=== PATIENT | female | born 1930 | race Caucasian/White ===

== ENCOUNTER 2018-03-26 16:55 | Inpatient (IN) ==
[2018-03-26 18:02] LABS: Baso % (Auto) 0.2 % (0.0-2.0); Hemoglobin 11.9 gm/dL (11.6-15.3); Lymph # (Auto) 0.7 th/mm3 (1.0-4.8); Lymph % (Auto) 6.2 % (9.0-44.0); Mean Corpuscular HGB Conc 34.1 % (32.0-36.0); Mean Corpuscular Volume 102.7 fL (80.0-100.0); Mean Platelet Volume 10.1 fL (7.0-11.0); Mono # (Auto) 2.1 th/mm3 (0.0-0.9); Mono % (Auto) 17.9 % (0.0-8.0); Neut # (Auto) 8.9 th/mm3 (1.8-7.7); Neut % (Auto) 75.7 % (16.0-70.0); Platelet Count 218 th/mm3 (150-450); Red Blood Count 3.41 mil/mm3 (4.00-5.30); Red Cell Distribution Width 13.8 % (11.6-17.2); White Blood Count 11.7 th/mm3 (4.0-11.0)
--- NOTE | 2018-03-26 18:12 | ED ---
HPI General Chief Complaint: Fall Stated Complaint: Fall, confusion Time Seen by Provider: 03/26/18 17:11 Source: patient Mode of arrival: wheelchair Limitations: no limitations History of Present Illness HPI Narrative: Patient is an 87-year-old female with past medical history significant for atrial fibrillation (on Eliquis), hypertension, diabetes mellitus, and heart murmur who presents to emergency room with complaints of fall injury. Son reports that he was called by [employer] approximate 45 minutes ago with concerns that his mother had had a fall due to significant ecchymosis around her right eye. Patient states she did not even know she fell and does not know any of the circumstances surrounding her fall. Currently she denies any headache, visual disturbances, nausea, vomiting dizziness or gait disturbance. She denies any recent chest pain, shortness of breath, abdominal pain, nausea, vomiting, urinary symptoms, dizziness. Son states that when he arrived at patient's [place] his mother seemed mildly confused and a little bit more subdued. Here she seems to be returning to her norm. Related Data Home Medications Medication Instructions Recorded Confirmed apixaban [Eliquis] 5 mg PO BID 03/26/18 03/26/18 losartan 100 mg PO DAILY 03/26/18 03/26/18 Allergies Allergy/AdvReac Type Severity Reaction Status Date / Time NKDA Allergy Mild Uncoded 03/29/03 08:20 Review of Systems ROS: all other systems reviewed are negative [facility] Medical History Medical History Atrial fibrillation (Acute) Diabetes (Acute) FH: total knee replacement (Acute) HTN (hypertension) (Acute) Heart murmur (Acute) Social History Social History Substance History: No History of Abuse Second Hand Smoke Exposure: No Smoking Status: Former smoker How Often Do You Have a Drink Containing Alcohol: 2 to 4 times a month Recent Travel in [facility] within the Last 8 Weeks: No Recent Out of Country Travel within the Last 8 Weeks: No Immunization History Tetanus Immunization: <5 Years Exam Narrative Exam Narrative: GENERAL: Alert, elderly, female, NAD SKIN: Focused skin assessment warm/dry. Significant upper and lower eyelid ecchymosis on the right as well as periorbital ecchymosis. No open lacerations. HEAD: Atraumatic. Normocephalic. No collins sign EYES: Pupils equal and round. No scleral icterus. No injection or drainage. ENT: No nasal bleeding or discharge. Mucous membranes pink and moist. NECK: Trachea midline. No JVD. CARDIOVASCULAR: Irregular rate. No murmur appreciated. RESPIRATORY: No accessory muscle use. Clear to auscultation. Breath sounds equal bilaterally. GASTROINTESTINAL: Abdomen soft, non-tender, nondistended. Hepatic and splenic margins not palpable. MUSCULOSKELETAL: No obvious deformities. No clubbing. No cyanosis. No edema. NEUROLOGICAL: Awake and alert. No obvious cranial nerve deficits. Motor grossly within normal limits. Normal speech. PSYCHIATRIC: Appropriate mood and affect; insight and judgment normal. Course Initial Documented Vital Signs Temperature 98.3 F 03/26/18 16:59 Pulse Rate 125 H 03/26/18 16:59 Respiratory Rate 18 03/26/18 16:59 Blood Pressure 129/85 03/26/18 16:59 Pulse Oximetry 96 03/26/18 16:59 Last Documented Vital Signs Temperature 98 F 03/28/18 19:45 Pulse Rate 104 H 03/28/18 19:45 Respiratory Rate 17 03/28/18 19:45 Blood Pressure 175/79 H 03/28/18 19:45 Pulse Oximetry 95 03/28/18 19:45 Medical Decision Making ADIEL Attestation ADIEL supervised visit: Yes Attestation: I, Dr. Sesay, have reviewed the advance practice practitioner's documentation and am in agreement, met with the patient face to face, made the diagnosis, and the medical decision making was done by me. *My assessment and Findings: Traumatic subarachnoid hemorrhage. Anticoagulated. There is a call out to the trauma surgeon and neurosurgeon. If the trauma surgeon defers to the sleeping car service attendant, patient will be admitted to the intensive service otherwise will be admitted to the trauma service. Patient was seen by me, Dr. Lomas, after the CT scan reports were back. Patient appears to be alert and oriented x3. Her son was sitting next to her. Patient does not recall this fall at all. Her son said that patient was last seen by the other residents at the [facility] on Thursday. And then they saw her this morning and were alerted by the bruising around her right eye. Case was discussed with Dr. Marshall from neurosurgery. Patient is on Eliquis for A. fib and he would prefer the patient to be in the intensive care unit. My nurse practitioner who is seeing the patient and I am supervising her discussed the case initially with the sleeping car service attendant Dr. Figueredo who wanted the patient to go to trauma service. She discussed the case with Dr. Rose. I have updated the patient about the plan. She is agreeable to it. It was also noted that patient has slightly elevated troponin and a density in her lung which is read by the radiologist as a mass versus consolidation. This will be addressed by the medical team once the patient has been admitted. MDM Narrative Medical decision making narrative: Patient is an 87-year-old female with a history of atrial fibrillation, on Eliquis who sustained a fall either today or yesterday. Circumstances surrounding her fall are unknown by the patient. Unknown whether she had loss of consciousness. Unknown if there was chest pain or dizziness prior to the fall or what it was a slip and fall. Obvious periorbital ecchymosis surrounding the right eye. No palpable fracture upon examination. Sclera clear. Patient asymptomatic currently with no complaints of headache, dizziness, nausea, vomiting, visual disturbances. CT of the head as well as a CT the patient bones without contrast ordered EKG showed atrial fib at 103, no ST elevation. Troponin, CBC, UA, CMP, chest x- ray ordered as well and pending. Please refer to Dr. Lomas's note above. Spoke with Dr. Rose will admit the patient. Course of the patient be admitted to ICU. Medical Screen Exam Complete: Yes Emergency Medical Condition: Yes Differential Diagnosis Differential Diagnosis: Facial fracture/contusion/closed head injury/ intracranial bleed Lab Data Result diagrams: 03/28/18 04:24 03/28/18 04:24 Lab Results 03/26/18 03/26/18 03/26/18 Range/Units 17:11 17:11 17:11 WBC 11.7 H (4.0-11.0) th/mm3 RBC 3.41 L (4.00-5.30) mil/mm3 Hgb 11.9 (11.6-15.3) gm/dL Hct 35.0 (35.0-46.0) % MCV 102.7 H (80.0-100.0) fL MCH 35.0 H (27.0-34.0) pg MCHC 34.1 (32.0-36.0) % RDW 13.8 (11.6-17.2) % Plt Count 218 (150-450) th/mm3 MPV 10.1 (7.0-11.0) fL Neut % (Auto) 75.7 H (16.0-70.0) % Lymph % (Auto) 6.2 L (9.0-44.0) % [place] % (Auto) 17.9 H (0.0-8.0) % Eos % (Auto) 0.0 (0.0-4.0) % Baso % (Auto) 0.2 (0.0-2.0) % Neut # (Auto) 8.9 H (1.8-7.7) th/mm3 Lymph # (Auto) 0.7 L (1.0-4.8) th/mm3 [place] # (Auto) 2.1 H (0.0-0.9) th/mm3 Eos # (Auto) 0.0 (0.0-0.4) th/mm3 Baso # (Auto) 0.0 (0.0-0.2) th/mm3 WBC Differential . Differential Comment Auto diff final Sodium 137 (136-145) meq/L Potassium 4.5 (3.5-5.1) meq/L Chloride 103 (98-107) meq/L Carbon Dioxide 25.9 (21.0-32.0) meq/L Anion Gap 8 (5-15) meq/L BUN 18 (7-18) mg/dL Creatinine 1.14 H (0.50-1.00) mg/dL Estimated GFR 45 L (>89) mL/min Random Glucose 132 H (74-106) mg/dL Calcium 9.2 (8.5-10.1) mg/dL Total Bilirubin (0.2-1.0) mg/dL AST (15-37) U/L ALT (10-53) U/L Alkaline Phosphatase (45-117) U/L Troponin I 0.07 H (0.02-0.05) ng/mL B-Natriuretic Peptide 155 H (0-100) pg/mL Total Protein (6.4-8.2) g/dL Albumin (3.4-5.0) g/dL Urine Color (Yellw/Straw) Urine Clarity (Clear) Urine pH (5.0-8.5) Ur Specific [place] (1.002-1.035) Urine Protein (Neg-Trace) mg/dL Urine Glucose (UA) (Negative) mg/dL Urine Ketones (Negative) mg/dL Urine Occult Blood (Negative) Urine Nitrate (Negative) Urine Bilirubin (Negative) Urine Urobilinogen (Less than 2) mg/dL Ur Leukocyte Esterase (Negative) Urine RBC (0-3) /hpf Urine WBC (0-5) /hpf Urine Bacteria (None) /hpf Urine Mucus (Occasional) /lpf Micro UA Comment Ur Microscopic Review Urine Culture Comments Nasal Screen MRSA (PCR) (Negative) 03/26/18 03/27/18 03/27/18 Range/Units 21:30 04:41 04:41 WBC 9.0 (4.0-11.0) th/mm3 RBC 2.99 L (4.00-5.30) mil/mm3 Hgb 10.4 L (11.6-15.3) gm/dL Hct 30.3 L (35.0-46.0) % MCV 101.3 H (80.0-100.0) fL MCH 34.7 H (27.0-34.0) pg MCHC 34.2 (32.0-36.0) % RDW 13.6 (11.6-17.2) % Plt Count 195 (150-450) th/mm3 MPV 10.0 (7.0-11.0) fL Neut % (Auto) 71.9 H (16.0-70.0) % Lymph % (Auto) 8.2 L (9.0-44.0) % [place] % (Auto) 19.7 H (0.0-8.0) % Eos % (Auto) 0.0 (0.0-4.0) % Baso % (Auto) 0.2 (0.0-2.0) % Neut # (Auto) 6.5 (1.8-7.7) th/mm3 Lymph # (Auto) 0.7 L (1.0-4.8) th/mm3 [place] # (Auto) 1.8 H (0.0-0.9) th/mm3 Eos # (Auto) 0.0 (0.0-0.4) th/mm3 Baso # (Auto) 0.0 (0.0-0.2) th/mm3 WBC Differential . Differential Comment Auto diff final Sodium 142 (136-145) meq/L Potassium 4.4 (3.5-5.1) meq/L Chloride 107 (98-107) meq/L Carbon Dioxide 26.5 (21.0-32.0) meq/L Anion Gap 9 (5-15) meq/L BUN 20 H (7-18) mg/dL Creatinine 0.89 (0.50-1.00) mg/dL Estimated GFR 60 L (>89) mL/min Random Glucose 120 H (74-106) mg/dL Calcium 8.8 (8.5-10.1) mg/dL Total Bilirubin (0.2-1.0) mg/dL AST (15-37) U/L ALT (10-53) U/L Alkaline Phosphatase (45-117) U/L Troponin I (0.02-0.05) ng/mL B-Natriuretic Peptide (0-100) pg/mL Total Protein (6.4-8.2) g/dL Albumin (3.4-5.0) g/dL Urine Color (Yellw/Straw) Urine Clarity (Clear) Urine pH (5.0-8.5) Ur Specific [place] (1.002-1.035) Urine Protein (Neg-Trace) mg/dL Urine Glucose (UA) (Negative) mg/dL Urine Ketones (Negative) mg/dL Urine Occult Blood (Negative) Urine Nitrate (Negative) Urine Bilirubin (Negative) Urine Urobilinogen (Less than 2) mg/dL Ur Leukocyte Esterase (Negative) Urine RBC (0-3) /hpf Urine WBC (0-5) /hpf Urine Bacteria (None) /hpf Urine Mucus (Occasional) /lpf Micro UA Comment Ur Microscopic Review Urine Culture Comments Nasal Screen MRSA (PCR) Not detected (Negative) 03/27/18 03/28/18 03/28/18 Range/Units 17:20 04:24 04:24 WBC 9.3 (4.0-11.0) th/mm3 RBC 2.96 L (4.00-5.30) mil/mm3 Hgb 10.6 L (11.6-15.3) gm/dL Hct 30.7 L (35.0-46.0) % MCV 103.8 H (80.0-100.0) fL MCH 35.7 H (27.0-34.0) pg MCHC 34.4 (32.0-36.0) % RDW 13.7 (11.6-17.2) % Plt Count 216 (150-450) th/mm3 MPV 9.9 (7.0-11.0) fL Neut % (Auto) 73.2 H (16.0-70.0) % Lymph % (Auto) 6.3 L (9.0-44.0) % [place] % (Auto) 20.2 H (0.0-8.0) % Eos % (Auto) 0.0 (0.0-4.0) % Baso % (Auto) 0.3 (0.0-2.0) % Neut # (Auto) 6.8 (1.8-7.7) th/mm3 Lymph # (Auto) 0.6 L (1.0-4.8) th/mm3 [place] # (Auto) 1.9 H (0.0-0.9) th/mm3 Eos # (Auto) 0.0 (0.0-0.4) th/mm3 Baso # (Auto) 0.0 (0.0-0.2) th/mm3 WBC Differential . Differential Comment Auto diff final Sodium 141 (136-145) meq/L Potassium 4.4 (3.5-5.1) meq/L Chloride 107 (98-107) meq/L Carbon Dioxide 28.3 (21.0-32.0) meq/L Anion Gap 6 (5-15) meq/L BUN 25 H (7-18) mg/dL Creatinine 0.99 (0.50-1.00) mg/dL Estimated GFR 53 L (>89) mL/min Random Glucose 152 H (74-106) mg/dL Calcium 8.9 (8.5-10.1) mg/dL Total Bilirubin 1.2 H (0.2-1.0) mg/dL AST 34 (15-37) U/L ALT 28 (10-53) U/L Alkaline Phosphatase 446 H (45-117) U/L Troponin I (0.02-0.05) ng/mL B-Natriuretic Peptide (0-100) pg/mL Total Protein 7.6 (6.4-8.2) g/dL Albumin 2.6 L (3.4-5.0) g/dL Urine Color [place] (Yellw/Straw) Urine Clarity Hazy H (Clear) Urine pH 5.0 (5.0-8.5) Ur Specific [place] 1.020 (1.002-1.035) Urine Protein 30 H (Neg-Trace) mg/dL Urine Glucose (UA) Negative (Negative) mg/dL Urine Ketones Trace H (Negative) mg/dL Urine Occult Blood Negative (Negative) Urine Nitrate Negative (Negative) Urine Bilirubin Negative (Negative) Urine Urobilinogen 0.2 (Less than 2) mg/dL Ur Leukocyte Esterase Negative (Negative) Urine RBC Less than 1 (0-3) /hpf Urine WBC 1 (0-5) /hpf Urine Bacteria Rare H (None) /hpf Urine Mucus Few H (Occasional) /lpf Micro UA Comment Culture not ind Ur Microscopic Review Not Reportable Urine Culture Comments Culture not ind Nasal Screen MRSA (PCR) (Negative) Imaging Data Radiologist's impression: Face CT 03/26/18 17:28 CONCLUSION: 1. Possible minimally displaced right nasal bone fracture. 2. Mild right periorbital soft tissue swelling. Head CT 03/26/18 17:28 CONCLUSION: 1. Mild focal subarachnoid hemorrhage seen over the left frontal region. 2. Age-related atrophy. 3. Widespread confluent demyelination. This is nonspecific. It could be secondary to small vessel ischemic change. . . Chest X-Ray 03/26/18 17:29 CONCLUSION: Focal consolidation or mass seen in the left mid lung. This could represent an area of pneumonia or possibly neoplasm. If the patient has signs of pneumonia, they should be treated and a follow-up chest x-ray be obtained. If this does not clear or the patient does not have signs of pneumonia, CT examination of the chest would be indicated. Carotid Doppler Study 03/28/18 00:00 CONCLUSION: PSV ratio bilaterally is elevated to 2.5 or greater. There is moderate visible plaque. Findings could be characteristic of a moderate bilateral carotid stenosis near the bifurcation. Chest X-Ray 03/28/18 06:00 CONCLUSION: No significant change Discharge Plan Discharge Disposition Patient Disposition: ED Admit(ED Internal Use Only) Discharge Condition Condition: Stable Discharge Order Discharge Orders: ED Use Only Admit Order (Routine); Ordered 03/26/18 Ordered By: Terrie Espana Discharge Details Anticipated Discharge Date: 03/27/18 Diagnosis: Subarachnoid hemorrhage Physicians Team ED Provider: Facundo Sesay ED Midlevel Provider: Terrie Espana Primary Care Provider: Arnold Contreras Attending Provider: Amado Rose Other Providers: Suraj Marshall ; Amado Rose ; Farhan Agrawal ; [employer] ; Ector Casas ; Manisha Gee ; Brennan Sanchez ; Es Guevara ; Chelsy Crow ; Milad Hampton ; Wolf Hairston Status ED Status: Left Department Discharge Information Discharge Date/Time: 03/26/18 21:34
[2018-03-26 18:17] LABS: Calcium 9.2 mg/dL (8.5-10.1); Carbon Dioxide 25.9 meq/L (21.0-32.0); Potassium 4.5 meq/L (3.5-5.1)
[2018-03-26 18:22] LABS: Troponin I 0.07 ng/mL (0.02-0.05)
--- NOTE | 2018-03-26 18:33 | XR ---
EXAM DATE: 03/26/2018 6:24 PM EST AGE/SEX: 87 years / Female INDICATIONS: Shortness of breath. CLINICAL DATA: This is the patient's initial encounter. Patient reports that signs and symptoms have been present for 1 day and indicates a pain score of 0/10. MEDICAL/SURGICAL HISTORY: Diabetes. Hypertension. A-fib None. COMPARISON: No prior exams available for comparison. FINDINGS: The heart size is upper limits of normal. There is a focal consolidation or mass seen in the left mid lung. There some minimal patchy density seen at the lateral right midlung. The costophrenic angles ar e clear. CONCLUSION: Focal consolidation or mass seen in the left mid lung. This could represent an area of pneumonia or p ossibly neoplasm. If the patient has signs of pneumonia, they should be treated and a follow-up chest x-ray be obtained. If this does not clear or the patient does not have signs of pneumonia, CT examin ation of the chest would be indicated. Electronically signed by: Terell Arthur MD Board Certified Radiologist 03/26/2018 6:31 PM EST
--- NOTE | 2018-03-26 18:35 | CT ---
EXAM DATE: 03/26/2018 6:05 PM EST AGE/SEX: 87 years / Female INDICATIONS: Fall, Altered Mental Status CLINICAL DATA: This is the patient's initial encounter. Patient reports that signs and symptoms have been present for 1 day and indicates a pain score of 0/10. MEDICAL/SURGICAL HISTORY: Diabetes. Hypertension. Atrial Fibrillation, Heart Murmur None. RADIATION DOSE: 37.51 CTDI (mGy) COMPARISON: No prior exams available for comparison. TECHNIQUE: CT of the head without contrast. Using automated exposure control and adjustment of the mA and/or kV according to patient size, radiation dose was kept as low as reasonably achievable to ob tain optimal diagnostic quality images. DICOM format image data is available electronically for revi ew and comparison. FINDINGS: Cerebrum: The ventricles and cortical sulci are dilated. There is hemorrhage seen at the anterior le ft frontal region. This appears to be in the subarachnoid space. There is decreased density in the ce rebral white matter. There are some expansion of the extra-axial spaces over the frontal lobes likely related to the atrophy and hygromas. No evidence of midline shift, mass lesion, or acute infarction. Posterior Fossa: The cerebellum and brainstem are intact. The 4th ventricle is midline. The cerebe llopontine angle is unremarkable. Extracranial: The visualized portion of the orbits is intact. Skull: The calvaria is intact. No evidence of skull fracture. CONCLUSION: 1. Mild focal subarachnoid hemorrhage seen over the left frontal region. 2. Age-related atrophy. 3. Widespread confluent demyelination. This is nonspecific. It could be secondary to small vessel is chemic change. . . Electronically signed by: Terell Arthur MD Board Certified Radiologist 03/26/2018 6:33 PM EST
--- NOTE | 2018-03-26 18:55 | CT ---
EXAM DATE: 03/26/2018 6:05 PM EST AGE/SEX: 87 years / Female INDICATIONS: Fall, Right orbit bruising CLINICAL DATA: This is the patient's initial encounter. Patient reports that signs and symptoms have been present for 1 day and indicates a pain score of 0/10. MEDICAL/SURGICAL HISTORY: Diabetes. Hypertension. Atrial Fibrillation, Heart Murmur None. RADIATION DOSE: 60.07 CTDI (mGy) COMPARISON: No prior exams available for comparison. TECHNIQUE: Contiguous images in the axial and coronal planes were obtained using helical multirow de tector technique. Using automated exposure control and adjustment of the mA and/or kV according to p atient size, radiation dose was kept as low as reasonably achievable to obtain optimal diagnostic rochelle lity images. DICOM format image data is available electronically for review and comparison. FINDINGS: Orbits: The orbital and infraorbital osseous structures are intact. The retroconal structures have a normal configuration. No radiopaque foreign bodies are seen. Calcifications are seen at the anteri or globe regions bilaterally. Nasal Bone: There appears to be a possible nasal bone fracture seen at the right nasal bone with min imal medial displacement of the more anterior distal fragment. Zygomatic Arches: Symmetric without evidence of fracture. Sinuses: The maxillary, ethmoid, and frontal sinuses are intact. No air-fluid levels seen. Nasal Cavity: The nasal septum is intact and midline. The lacrimal ducts are intact. Soft Tissues: There is mild right periorbital soft tissue swelling. Intracranial: No intracranial air seen. Cribriform Plate: Grossly intact. CONCLUSION: 1. Possible minimally displaced right nasal bone fracture. 2. Mild right periorbital soft tissue swelling. Electronically signed by: Terell Arthur MD Board Certified Radiologist 03/26/2018 6:54 PM EST
[2018-03-26] MEDS ORDERED: Morphine Sulfate Inj 2 MG/ML Vial IV.PUSH PRN (20:24)
[2018-03-26] MEDS ORDERED: Acetaminophen 325 MG Tablet PO PRN (20:24)
[2018-03-26] MEDS: Sod Chloride 0.9% Inj 1,000 ML IV.CONT SCH (20:42)
[2018-03-26] MEDS: Docusate Sodium 100 MG Capsule PO SCH (21:56)
--- NOTE | 2018-03-26 22:10 | P.CONNS ---
History of Present Illness Service: Neurosurgery Consult date: 03/26/18 Requesting Physician: Amado Rose Reason for Consult: head injury Primary Care Provider: Arnold Contreras MD, PhD History of Present Illness: I was asked by Dr. Rose to see and evaluate this pleasant 87-year-old female s/p ground level fall 2 days ago. Son reports that he was called by [facility]? with concerns that his mother had had a fall due to significant ecchymosis around her right eye. Patient states she did not even know she fell and does not know any of the circumstances surrounding her fall. Currently she denies any headache, visual disturbances, nausea, vomiting dizziness or gait disturbance. Son states that when he arrived, patient seemed mildly confused and a little bit more subdued. Head CT shows minimal left frontal contusion and we were asked to consult. Review of Systems All other systems reviewed negative except as stated in HPI [facility] - History History Provided By: Patient - Medical History Medical History: Medical History (Last Reviewed 03/26/18 @ 22:08 by Suraj Marshall MD) Atrial fibrillation Diabetes FH: total knee replacement HTN (hypertension) Heart murmur - Tobacco History Second Hand Smoke Exposure: No Tobacco Use In Past 30 Days: No Smoking Status: Former smoker - Alcohol History How Often Do You Have a Drink Containing Alcohol: 2 to 4 times a month - Substance Use History Substance History: No History of Abuse - Travel History Recent Travel in the [place] Within the Last 8 Weeks: No Recent Travel Out of the Country Within the Last 8 Weeks: No - Immunization History Tetanus Immunization: <5 Years Medications and Allergies Active Medications: Active Medications Acetaminophen (Tylenol) 650 mg PO Q6H PRN PRN Reason: TEMPERATURE > 102 F Hydrocodone Bitart/Acetaminophen (Nelson 5/325) 1 tab PO Q4H PRN PRN Reason: Pain 1-5 Al Hydroxide/Mg Hydroxide (Milk Of Magnesia Liq) 30 ml PO Q6H PRN PRN Reason: CONSTIPATION Bacitracin (Baciguent Oint) 1 applicatio TOPICAL BID SORAIDA Docusate Sodium (Colace) 100 mg PO BID SORAIDA Last Admin: 03/26/18 21:56 Dose: Not Given Enalaprilat (Vasotec Inj) 1.25 mg IV.PUSH Q8H PRN PRN Reason: SBP>180, DBP>95 Sodium Chloride (Ns Inj) 1,000 mls @ 75 mls/hr IV.CONT .[id number] [facility] Last Admin: 03/26/18 20:42 Dose: 75 mls/hr Morphine Sulfate (Morphine Inj) 2 mg IV.PUSH Q1H PRN PRN Reason: Break through pain Ondansetron HCl (Zofran Inj) 4 mg IV.PUSH Q6H PRN PRN Reason: NAUSEA OR VOMITING Sodium Chloride (Ns Flush) 2 ml IV.FLUSH UNSCH PRN PRN Reason: FLUSH AFTER USING IV ACCESS Allergies Allergy/AdvReac Type Severity Reaction Status Date / Time NKDA Allergy Mild Uncoded 03/29/03 08:20 Home Medications Medication Instructions Recorded Confirmed Type apixaban [Eliquis] 5 mg PO BID 03/26/18 03/26/18 History losartan 100 mg PO DAILY 03/26/18 03/26/18 History Exam Vital signs: Vital Signs 03/26/18 16:59 03/26/18 17:08 03/26/18 18:00 Temperature 98.3 F Pulse Rate 125 H 109 H 98 H Respiratory Rate 18 21 18 Blood Pressure 129/85 158/70 H 128/87 Pulse Oximetry 96 98 97 03/26/18 18:05 03/26/18 19:31 Temperature Pulse Rate 99 H Respiratory Rate 24 Blood Pressure 136/61 Pulse Oximetry 96 97 Intake & Output 03/26/18 03/26/18 03/27/18 06:59 18:59 06:59 Weight 68.946 kg - Constitutional no acute distress, cooperative - Routine HEENT Exam Head: Present: normocephalic Eye: Present: EOMI, PERRL, normal accommodation, periorbital ecchymosis, periorbital swelling ENT: Present: mucous membranes moist, oropharynx clear - Routine Neck Exam Present: supple, full ROM, trachea midline - Routine Respiratory Exam Present: CTA bilaterally - Routine Cardiovascular Exam Present: irregular rhythm - Routine Abdominal Exam Present: soft, normoactive bowel sounds - Routine Extremities Exam Present: full ROM, pulses intact, normal capillary refill - Routine Skin Exam Present: intact, warm, normal turgor - Routine Neurological Exam Present: alert, oriented X3, CN II-XII intact, normal reflexes, moving all extremities, normal tone, vision grossly intact, hearing grossly intact, normal speech - Detailed Neurological Exam: Coma Scale Eye Opening: Spontaneous Verbal Response: Oriented Motor Response: Obey commands Ceci Coma Scale Total: 15 - Routine Psychiatric Exam Present: normal affect, normal thought process, cooperative Results - Laboratory Findings CBC and BMP: 03/26/18 17:11 03/26/18 17:11 Abnormal lab findings: Abnormal Labs 03/26/18 03/26/18 03/26/18 17:11 17:11 17:11 WBC 11.7 H RBC 3.41 L MCV 102.7 H MCH 35.0 H Neut % (Auto) 75.7 H Lymph % (Auto) 6.2 L [place] % (Auto) 17.9 H Neut # (Auto) 8.9 H Lymph # (Auto) 0.7 L [place] # (Auto) 2.1 H Creatinine 1.14 H Estimated GFR 45 L Random Glucose 132 H Troponin I 0.07 H B-Natriuretic Peptide 155 H - Diagnostic Findings EKG: report reviewed, image reviewed Chest x-ray: report reviewed, image reviewed Additional findings: Head and face CT scans reviewed. Assessment and Plan - Plan 87 yo female s/p GLF. GCS-[address] shows small left frontal contusion Admit to ICU Follow Neuro exam closely No indication for seizure prophylaxis No need for repeat head CT scan PT/OT evals in AM Will follow
--- NOTE | 2018-03-26 22:26 | MH ---
cc: Amado Rose MD DATE OF ADMISSION: 03/26/2018 CHIEF COMPLAINT: Trauma admission. HISTORY OF PRESENT ILLNESS: The patient is an 87-year-old female who was brought to the emergency department by her son for suspected fall. The patient was noted to have ecchymosis on her right face and right parietal scalp by her son today, and he brought her to the emergency department. The patient states that she donated blood on Thursday and was not told she had any bruising on her face and cannot recall any fall or pain or any traumatic event. Patient feels fine and has no complaints at this time. The patient is taking Eliquis for atrial fibrillation. She underwent evaluation in the emergency department by the emergency room clinicians and they did find the patient had a small abnormality on CT of the head; mild focal subarachnoid hemorrhage seen over the left frontal region as well as age-related atrophy. The patient was admitted to the intensive care unit to the trauma team and Neurosurgery was consulted. REVIEW OF SYSTEMS: A 12-point review of systems conducted with the patient and is negative except for the pertinent positives mentioned above in history of present illness. PAST MEDICAL HISTORY: Atrial fibrillation, diabetes, hypertension, heart murmur. PAST SURGICAL HISTORY: Total knee replacement. ALLERGIES: NO KNOWN DRUG ALLERGIES. MEDICATIONS: Eliquis and Losartan. SOCIAL HISTORY: The patient lives independently. Drinks alcohol, wine occasionally. Denies tobacco or illicit drug use. FAMILY HISTORY: Reviewed and noncontributory. VITAL SIGNS: Temperature 98.3 degrees, heart rate 99, respiratory rate 24, blood pressure 136/61, O2 saturation 97%. GENERAL: The patient is a well-developed, well-nourished, female, in no acute distress. She does not appear acutely or chronically ill. HEENT: Head is normocephalic. There is ecchymosis noted over the right periorbital area and right parietal scalp. There is no hematoma, no deformity. Extraocular muscles intact. Pupils are equal, round and reactive to light. Oral cavity is clear. Airway patent. Nares patent. NECK: Supple. No JVD. Cervical spine is nontender to palpation without deformity. CHEST: Chest wall stable without deformity. Breath sounds present bilaterally. Nonlabored breathing pattern. HEART: Irregular rate and rhythm. No murmurs. ABDOMEN: Soft, nontender to palpation. No organomegaly. No ascites. No seatbelt sign. Pelvis is stable without deformity. EXTREMITIES: Warm, perfused intact. No clubbing, cyanosis or edema noted. BACK: No thoracic or lumbar tenderness or deformity. NEUROLOGIC: The patient is GCS 15, awake, alert and oriented x 3. Nonfocal peripheral exam. Cranial nerves 2-12 are grossly intact. Judgment and insight are intact. LABORATORY VALUES: Hemoglobin 11.9. IMAGING: CT scan of the patient's head: A small subarachnoid hemorrhage. ASSESSMENT AND PLAN: The patient is an 87-year-old female with [place] Coma Scale 15, awake, alert, neurologically intact. The patient will be admitted to the intensive care unit for close neuromonitoring. We will consult neurosurgery for further evaluation and recommendations. We will hold the patient's Eliquis due to documented intracranial bleed. MD LAUREN Bolden/mira , 09:56 PM , 10:06 PM
[2018-03-27 05:49] LABS: Baso % (Auto) 0.2 % (0.0-2.0); Hematocrit 30.3 % (35.0-46.0); Hemoglobin 10.4 gm/dL (11.6-15.3); Lymph # (Auto) 0.7 th/mm3 (1.0-4.8); Lymph % (Auto) 8.2 % (9.0-44.0); Mean Corpuscular HGB Conc 34.2 % (32.0-36.0); Mean Corpuscular Hemoglobin 34.7 pg (27.0-34.0); Mean Corpuscular Volume 101.3 fL (80.0-100.0); Mono # (Auto) 1.8 th/mm3 (0.0-0.9); Mono % (Auto) 19.7 % (0.0-8.0); Neut # (Auto) 6.5 th/mm3 (1.8-7.7); Neut % (Auto) 71.9 % (16.0-70.0); Platelet Count 195 th/mm3 (150-450); Red Blood Count 2.99 mil/mm3 (4.00-5.30); Red Cell Distribution Width 13.6 % (11.6-17.2)
[2018-03-27 06:12] LABS: Calcium 8.8 mg/dL (8.5-10.1); Carbon Dioxide 26.5 meq/L (21.0-32.0); Potassium 4.4 meq/L (3.5-5.1)
[2018-03-27] MEDS ORDERED: Morphine Sulfate Inj 2 MG/ML Vial IV.PUSH PRN (06:36)
[2018-03-27] MEDS: Famotidine 20 MG Tablet PO SCH ×2 (08:47→22:06)
[2018-03-27] MEDS: Docusate Sodium 100 MG Capsule PO SCH ×2 (09:50→22:07)
--- NOTE | 2018-03-27 11:28 | P.PNCC ---
Subjective Brief History: [place]: This is an 87-year-old female who sustained a fall. She fell in the retirement approximately 2 days before arrival. She fell under unknown circumstances. Patient does not even remember that she fell. INJURIES: LEFT SAH RIGHT nasal sun fx LEFT mass vs. consolidation PMHx: A. fib (on Eliquis) HTN. DM. Heart murmur. 24 Hour Review/Hospital Course: 03/27/2018 Patient sitting up in bed. No distress noted. No complaints offered. Patient asked how old she was, patient states, "51, [age] -wait, I am getting there." Patient was able to give date of as 193 Objective Vital Signs / I&O: Vital Signs 03/26/18 16:59 03/26/18 17:08 03/26/18 18:00 Temperature 98.3 F Pulse Rate 125 H 109 H 98 H Respiratory Rate 18 21 18 Blood Pressure 129/85 158/70 H 128/87 Pulse Oximetry 96 98 97 03/26/18 18:05 03/26/18 19:31 03/26/18 23:00 Temperature 98.9 F Pulse Rate 99 H 98 H Respiratory Rate 24 29 H Blood Pressure 136/61 143/66 H Pulse Oximetry 96 97 93 L 03/27/18 00:00 03/27/18 01:00 03/27/18 02:00 Temperature Pulse Rate 104 H 96 H 96 H Respiratory Rate 25 H 26 H 27 H Blood Pressure 129/60 137/63 134/61 Pulse Oximetry 93 L 94 L 96 03/27/18 03:00 03/27/18 04:00 03/27/18 05:00 Temperature Pulse Rate 94 H 98 H 96 H Respiratory Rate 26 H 29 H 24 Blood Pressure 116/57 L 125/60 138/64 Pulse Oximetry 94 L 91 L 93 L 03/27/18 06:00 Temperature Pulse Rate 96 H Respiratory Rate 21 Blood Pressure 138/65 Pulse Oximetry 93 L Intake & Output 03/26/18 03/27/18 03/27/18 18:59 06:59 18:59 Weight 68.946 kg 70.8 kg Other: Date of Last Bowel Movement 03/24/18 Weight On Admission 68.946 kg Result Diagrams: 03/27/18 04:41 03/27/18 04:41 Imaging: Impressions Face CT 03/26/18 17:28 CONCLUSION: 1. Possible minimally displaced right nasal bone fracture. 2. Mild right periorbital soft tissue swelling. Head CT 03/26/18 17:28 CONCLUSION: 1. Mild focal subarachnoid hemorrhage seen over the left frontal region. 2. Age-related atrophy. 3. Widespread confluent demyelination. This is nonspecific. It could be secondary to small vessel ischemic change. . . Chest X-Ray 03/26/18 17:29 CONCLUSION: Focal consolidation or mass seen in the left mid lung. This could represent an area of pneumonia or possibly neoplasm. If the patient has signs of pneumonia, they should be treated and a follow-up chest x-ray be obtained. If this does not clear or the patient does not have signs of pneumonia, CT examination of the chest would be indicated. Objective Remarks: GENERAL: This is a 87-year-old female sitting up in bed. No distress noted. SKIN: Warm and dry. HEAD: Atraumatic. Normocephalic. EYES: PERRLA. Ecchymosis to right eye ENT: No nasal bleeding or discharge. Mucous membranes pink and moist. NECK: Trachea midline. No JVD. CARDIOVASCULAR: Regular rate and rhythm. RESPIRATORY: No accessory muscle use. Lungs are clear to auscultation. Breath sounds equal bilaterally. No distress or dyspnea. GASTROINTESTINAL: BS + x 4 quads. Abdomen soft, non-tender, nondistended. MUSCULOSKELETAL: Extremities without cyanosis, or edema. + peripheral pulses x 4 extremities. Warm with good capillary refill and sensation. MAEW. NEUROLOGICAL: Awake and alert. Pleasantly confused. Normal speech and pattern. Assessment and Plan - Assessment (1) Nasal bone fracture Code(s): S02.2XXA - Fracture of nasal bones, initial encounter for closed fracture Status: Acute (2) Subarachnoid hemorrhage Code(s): I60.9 - Nontraumatic subarachnoid hemorrhage, unspecified Status: Acute Plan: [place]: This is a 87-year-old female who sustained a fall at the retirement. She does not know how she fell, nor remember falling. INJURIES: LEFT SAH RIGHT nasal bone fx LEFT mass vs. consolidation PMHx: A. fib (on Eliquis) HTN. DM. Heart murmur. Procedures: Consults: Neurosurgery. OMFS. Case management. Diet: Diabetic diet. Tolerating po diet. Encourage good po intake with each meal. Pulmonary: Encourage good pulmonary toileting. IS at bedside and pt encouraged to use. Rationale for use explained to patient, and verbalized understanding. PAIN Management: [place] 5 mg q 4h. Morphine 2 mg q 4h. Activity: OOB. PT and OT ordered GI prophylaxis: Pepcid 20 mg BID po Bowel regimen: Colace. MOM PRN. LBM: 0 DVT prophylaxis: Mechanical VTE with SCDs. Chemical management TBD in light of SAH. DC Planning: Case management consulted for assistance with final discharge disposition. Emotional support provided to patient and family at bedside and plan of care discussed. Discussed with RN at bedside. Discussed pt condition and plan of care with collaborating trauma surgeon. Patient is hemodynamically stable in the ICU, therefore she can be transferred and managed on the med/surg floor. The trauma team will round each day, and evaluate plan of care on a daily basis. LEFT SAH Neurosurgery consulted and assisting in management and care Supportive care Serial neuro checks CT brain for any change in neurological status Seizure precautions Does not require Keppra at this time per neurosurgery Head of bed elevated Encourage out of bed PT and OT ordered Bowel regimen SCDs for DVT prophylaxis RIGHT nasal bone fx OMFS consulted Awaiting assessment and plan Supportive care No forceful nose blowing Pain management Encourage out of bed PT and OT ordered Bowel regimen SCDs for DVT prophylaxis Lung consolidation O2 nasal cannula as needed Supportive care Aggressive pulmonary toileting Pain management Chest x-ray as needed Encourage out of bed PT and OT ordered Bowel regimen SCDs for DVT prophylaxis Questionable syncope Fall under unknown circumstances and retirement Supportive care O2 nasal cannula as needed EKG -shows chronic A. fib 03/27: Carotid ultrasound -awaiting exam and results Serum glucose level -120 on this a.m.'s labs -managed glucose levels H&H = 10.4/30.3 stable Serum electrolytes -WNL Urine culture pending 03/26: CT brain shows tiny left SAH Consider echocardiogram Consider Holter monitor Consider cardiology consult Pre-existing conditions A. fib HTN DM Heart murmur Vital signs every 4 hours and as needed Resumed home losartan 100 mg daily Diabetic diet Hold Eliquis at this time in light of SAH (1) Nasal bone fracture Qualifiers: Encounter type: initial encounter Fracture type: closed Qualified Code(s): S02.2XXA - Fracture of nasal bones, initial encounter for closed fracture
--- NOTE | 2018-03-27 12:30 | P.PNNS ---
Subjective Interval history: 87-year-old female s/p ground level fall 2 days ago. Son reports that he was called by [facility]? with concerns that his mother had had a fall due to significant ecchymosis around her right eye. Patient states she did not even know she fell and does not know any of the circumstances surrounding her fall. Currently she denies any headache, visual disturbances, nausea, vomiting dizziness or gait disturbance. Son states that when he arrived, patient seemed mildly confused and a little bit more subdued. Head CT shows minimal left frontal contusion and we were asked to consult. Doing well, no overnight events. Physical Exam Vital signs: Vital Signs 03/26/18 16:59 03/26/18 17:08 03/26/18 18:00 Temperature 98.3 F Pulse Rate 125 H 109 H 98 H Respiratory Rate 18 21 18 Blood Pressure 129/85 158/70 H 128/87 Pulse Oximetry 96 98 97 03/26/18 18:05 03/26/18 19:31 03/26/18 23:00 Temperature 98.9 F Pulse Rate 99 H 98 H Respiratory Rate 24 29 H Blood Pressure 136/61 143/66 H Pulse Oximetry 96 97 93 L 03/27/18 00:00 03/27/18 01:00 03/27/18 02:00 Temperature Pulse Rate 104 H 96 H 96 H Respiratory Rate 25 H 26 H 27 H Blood Pressure 129/60 137/63 134/61 Pulse Oximetry 93 L 94 L 96 03/27/18 03:00 03/27/18 04:00 03/27/18 05:00 Temperature Pulse Rate 94 H 98 H 96 H Respiratory Rate 26 H 29 H 24 Blood Pressure 116/57 L 125/60 138/64 Pulse Oximetry 94 L 91 L 93 L 03/27/18 06:00 03/27/18 11:00 03/27/18 12:00 Temperature 98.2 F 98.8 F Pulse Rate 96 H 118 H 92 H Respiratory Rate 21 Blood Pressure 138/65 144/80 H 158/66 H Pulse Oximetry 93 L 94 L Intake & Output 03/26/18 03/27/18 03/27/18 18:59 06:59 18:59 Weight 68.946 kg 70.8 kg Other: Date of Last Bowel Movement 03/24/18 Weight On Admission 68.946 kg - Constitutional no acute distress, cooperative - Routine HEENT Exam Head: Present: normocephalic, hematoma Eye: Present: EOMI, PERRL, normal accommodation, periorbital ecchymosis, periorbital tenderness ENT: Present: mucous membranes moist, oropharynx clear - Routine Neck Exam Present: supple, full ROM, trachea midline - Routine Respiratory Exam Present: CTA bilaterally - Routine Cardiovascular Exam Present: irregular rhythm - Routine Abdominal Exam Present: soft, normoactive bowel sounds - Routine Skin Exam Present: intact, warm, normal turgor - Routine Neurological Exam Present: alert, oriented X3, CN II-XII intact, normal reflexes, moving all extremities, normal tone, vision grossly intact, hearing grossly intact, normal speech - Detailed Neurological Exam: Coma Scale Eye Opening: Spontaneous Verbal Response: Oriented Motor Response: Obey commands [place] Coma Scale Total: 15 - Routine Psychiatric Exam Present: normal affect, normal thought process, cooperative Assessment and Plan - Plan 87 yo female s/p GLF. GCS-[address] shows small left frontal contusion Doing well overnight PT/OT/ NeuroPsych evals to assess whether patient is safe to go back to assisted living conditions No indication for further Neurosurgical f/u in this minor TBI Will sign off and be available as needed
[2018-03-27] MEDS: Sod Chloride 0.9% Inj 1,000 ML IV.CONT SCH (12:58)
--- NOTE | 2018-03-27 13:03 | P.CON ---
History of Present Illness Service: Oral & Maxillofacial Surgery Consult date: 03/27/18 Requesting Physician: Manisha Gee Reason for Consult: Nasal fracture Primary Care Provider: Arnold Contreras MD, PhD Chief Complaint: s/p fall History of Present Illness: 87 y/o F with a history of atrial fibrillation, DM, HTN, who presents to [facility] after a fall. She sustained a subarachnoid hemorrhage and a right sided nasal bone fracture. Currently, the patient denies any pain in her face. She is unsure if she has broken her nose in the past. She denies any difficulty breathing through her nose. She denies any eye pain or changes in her vision. She denies any changes in her occlusion. Review of Systems Eyes: Denies blurry vision, Denies change in vision, Denies double vision Ears, Nose, Mouth, and Throat: Denies dental pain, Denies facial pain, Denies headache(s), Denies nasal discharge, Denies nasal obstruction Cardiovascular: Denies chest pain Respiratory: Denies wheezing Gastrointestinal: Denies abdominal pain PMFSH - History History Provided By: Patient - Medical History Medical History: Medical History (Last Reviewed 03/27/18 @ 12:31 by Renetta Alexander RN) Atrial fibrillation Diabetes FH: total knee replacement HTN (hypertension) Heart murmur - Tobacco History Second Hand Smoke Exposure: No Tobacco Use In Past 30 Days: No Smoking Status: Former smoker - Alcohol History How Often Do You Have a Drink Containing Alcohol: 2 to 4 times a month - Substance Use History Substance History: No History of Abuse - Travel History Recent Travel in the [place] Within the Last 8 Weeks: No Recent Travel Out of the Country Within the Last 8 Weeks: No - Immunization History Tetanus Immunization: <5 Years Medications and Allergies Active Medications: Active Medications Acetaminophen (Tylenol) 650 mg PO Q6H PRN PRN Reason: Pain or temperature > 102 F Hydrocodone Bitart/Acetaminophen ([place] 5/325) 1 tab PO Q4H PRN PRN Reason: Pain > 3 Last Admin: 03/27/18 08:47 Dose: 1 tab Al Hydroxide/Mg Hydroxide (Milk Of Magnesia Liq) 30 ml PO Q6H PRN PRN Reason: CONSTIPATION Bacitracin (Baciguent Oint) 1 applicatio TOPICAL BID S[place] Last Admin: 03/27/18 09:50 Dose: Not Given Docusate Sodium (Colace) 100 mg PO BID [facility] Last Admin: 03/27/18 09:50 Dose: 100 mg Enalaprilat (Vasotec Inj) 1.25 mg IV.PUSH Q8H PRN PRN Reason: SBP>180, DBP>95 Famotidine (Pepcid) 20 mg PO BID [facility] Last Admin: 03/27/18 08:47 Dose: 20 mg Losartan Potassium (Cozaar) 100 mg PO DAILY [facility] Last Admin: 03/27/18 08:47 Dose: 100 mg Morphine Sulfate (Morphine Inj) 2 mg IV.PUSH Q4H PRN PRN Reason: Break through pain Ondansetron HCl (Zofran Inj) 4 mg IV.PUSH Q6H PRN PRN Reason: NAUSEA OR VOMITING Sodium Chloride (Ns Flush) 2 ml IV.FLUSH UNSCH PRN PRN Reason: FLUSH AFTER USING IV ACCESS Allergies Allergy/AdvReac Type Severity Reaction Status Date / Time NKDA Allergy Mild Uncoded 03/29/03 08:20 Home Medications Medication Instructions Recorded Confirmed Type apixaban [Eliquis] 5 mg PO BID 03/26/18 03/26/18 History losartan 100 mg PO DAILY 03/26/18 03/26/18 History Physical Exam Vital signs: Vital Signs 03/26/18 16:59 03/26/18 17:08 03/26/18 18:00 Temperature 98.3 F Pulse Rate 125 H 109 H 98 H Respiratory Rate 18 21 18 Blood Pressure 129/85 158/70 H 128/87 Pulse Oximetry 96 98 97 03/26/18 18:05 03/26/18 19:31 03/26/18 23:00 Temperature 98.9 F Pulse Rate 99 H 98 H Respiratory Rate 24 29 H Blood Pressure 136/61 143/66 H Pulse Oximetry 96 97 93 L 03/27/18 00:00 03/27/18 01:00 03/27/18 02:00 Temperature Pulse Rate 104 H 96 H 96 H Respiratory Rate 25 H 26 H 27 H Blood Pressure 129/60 137/63 134/61 Pulse Oximetry 93 L 94 L 96 03/27/18 03:00 03/27/18 04:00 03/27/18 05:00 Temperature Pulse Rate 94 H 98 H 96 H Respiratory Rate 26 H 29 H 24 Blood Pressure 116/57 L 125/60 138/64 Pulse Oximetry 94 L 91 L 93 L 03/27/18 06:00 03/27/18 11:00 03/27/18 12:00 Temperature 98.2 F 98.8 F Pulse Rate 96 H 118 H 92 H Respiratory Rate 21 Blood Pressure 138/65 144/80 H 158/66 H Pulse Oximetry 93 L 94 L Intake & Output 03/26/18 03/27/18 03/27/18 18:59 06:59 18:59 Weight 68.946 kg 70.8 kg Other: Date of Last Bowel Movement 03/24/18 Weight On Admission 68.946 kg Narrative: General: Elderly female, comfortable, sitting in chair, and in no apparent distress. Neurological: Alert, in NAD. CNV and CNVII intact bilaterally. HEENT: Head/Face: Normocephalic. Scalp nonboggy with no palpable step-offs or deformities. Right periorbital ecchymosis. Malar prominences symmetric and without deformity. Midface stable. No palpable step-offs along inferior mandibular border. Face symmetric with no lacerations or abrasions. Eyes/Orbits: PERRL. EOMI. Nose: External nose is midline with small right sided step-off, edema on left > right over nasal dorsum. Septum midline. No septal hematoma. No rhinorrhea or epistaxis. TMJ/Mandible: Normal mandibular ROM with no deviations or restrictions with maximum opening, protrusion or lateral excursions. AMADOU > 4cm. Occlusion stable and repeatable. Oral Cavity/Oropharynx: The gingiva, labial and buccal mucosa, hard and soft palate, posterior oropharyngeal wall, tongue and floor of mouth are without lacerations or lesion. Mucosa pink and well hydrated. No maxillary or mandibular vestibular ecchymosis. Floor of mouth soft. Uvula midline. Dentition intact and nonmobile. Neck: Supple without cervical LAD or thyromegaly. Trachea midline. Normal ROM. Cardiovascular: Regular rate. Pulmonary: Normal work of breathing on room air. Abdomen: Soft, non-tender, non-distended. Extremities: Warm, well perfused. Results - Labs CBC & Chem 7: 03/27/18 04:41 03/27/18 04:41 Labs: Laboratory Results - last 24 hr 03/26/18 03/26/18 03/26/18 17:11 17:11 17:11 WBC 11.7 H RBC 3.41 L Hgb 11.9 Hct 35.0 MCV 102.7 H MCH 35.0 H MCHC 34.1 RDW 13.8 Plt Count 218 MPV 10.1 Neut % (Auto) 75.7 H Lymph % (Auto) 6.2 L [place] % (Auto) 17.9 H Eos % (Auto) 0.0 Baso % (Auto) 0.2 Neut # (Auto) 8.9 H Lymph # (Auto) 0.7 L [place] # (Auto) 2.1 H Eos # (Auto) 0.0 Baso # (Auto) 0.0 WBC Differential . Differential Comment Auto diff final Sodium 137 Potassium 4.5 Chloride 103 Carbon Dioxide 25.9 Anion Gap 8 BUN 18 Creatinine 1.14 H Estimated GFR 45 L Random Glucose 132 H Calcium 9.2 Troponin I 0.07 H B-Natriuretic Peptide 155 H Nasal Screen MRSA (PCR) 03/26/18 03/27/18 03/27/18 21:30 04:41 04:41 WBC 9.0 RBC 2.99 L Hgb 10.4 L Hct 30.3 L MCV 101.3 H MCH 34.7 H MCHC 34.2 RDW 13.6 Plt Count 195 MPV 10.0 Neut % (Auto) 71.9 H Lymph % (Auto) 8.2 L [place] % (Auto) 19.7 H Eos % (Auto) 0.0 Baso % (Auto) 0.2 Neut # (Auto) 6.5 Lymph # (Auto) 0.7 L [place] # (Auto) 1.8 H Eos # (Auto) 0.0 Baso # (Auto) 0.0 WBC Differential . Differential Comment Auto diff final Sodium 142 Potassium 4.4 Chloride 107 Carbon Dioxide 26.5 Anion Gap 9 BUN 20 H Creatinine 0.89 Estimated GFR 60 L Random Glucose 120 H Calcium 8.8 Troponin I B-Natriuretic Peptide Nasal Screen MRSA (PCR) Not detected - Imaging Impressions Face CT 03/26/18 17:28 CONCLUSION: 1. Possible minimally displaced right nasal bone fracture. 2. Mild right periorbital soft tissue swelling. Head CT 03/26/18 17:28 CONCLUSION: 1. Mild focal subarachnoid hemorrhage seen over the left frontal region. 2. Age-related atrophy. 3. Widespread confluent demyelination. This is nonspecific. It could be secondary to small vessel ischemic change. . . Chest X-Ray 03/26/18 17:29 CONCLUSION: Focal consolidation or mass seen in the left mid lung. This could represent an area of pneumonia or possibly neoplasm. If the patient has signs of pneumonia, they should be treated and a follow-up chest x-ray be obtained. If this does not clear or the patient does not have signs of pneumonia, CT examination of the chest would be indicated. Assessment and Plan - Plan 87 y/o F with a history of atrial fibrillation, DM, HTN, with a subarachnoid hemorrhage and a right sided nasal bone fracture following a fall. Her right nasal bone fracture is minimally displaced. Patient has no nasal obstruction or significant cosmetic deformity although there is appreciable edema currently. Nasal bone fracture will be treated nonoperatively at this time. Recommendations: -Avoid contact to the face over 6-8 weeks Avoid forceful nose blowing -Patient may follow-up in the office 1-2 weeks after discharge Thank you for this consultation. Please not hesitate to contact me at with any questions or concerns Wolf Hairston DDS, MD
--- NOTE | 2018-03-27 14:15 | ECG ---
Date Performed: 03/26/2018 Time Performed: 18:09:16 PTAGE: 87 years EKG: ATRIAL FIBRILLATION WITH RAPID VENTRICULAR RESPONSE PVC ABNORMAL RHYTHM ECG NO PREVIOUS TRACING DOCTOR: Geo Faria Interpretating Date/Time 03/27/2018 14:13:51
[2018-03-27 18:23] LABS: Bacteria,Urine Rare /hpf; Bilirubin,Urine Negative (Negative); Clarity,Urine Hazy (Clear); Color,Urine Amber (Yellw/Straw); Glucose,Urine (UA) Negative (Negative); Leukocyte Esterase,Urine Negative (Negative); Mucus,Urine Few /lpf (Occasional); Nitrite,Urine Negative (Negative)
[2018-03-27 18:25] LABS: Urobilinogen,Urine 0.2 mg/dL (Less than 2)
--- NOTE | 2018-03-28 04:32 | XR ---
EXAM DATE: 03/28/2018 3:57 AM EST AGE/SEX: 87 years / Female INDICATIONS: Short of breath. CLINICAL DATA: This is the patient's subsequent encounter. Patient reports that signs and symptoms h ave been present for 3 days and indicates a pain score of 0/10. MEDICAL/SURGICAL HISTORY: . Diabetes. Hypertension. A-fib None. COMPARISON: [facility] [place] 1V SINGLE AP, 03/26/2018. . FINDINGS: Diffuse interstitial prominence, lingular infiltrate and patchy right lung infiltrates are grossly un changed. Cardiac contours are stable. CONCLUSION: No significant change Electronically signed by: Terell Langley MD Board Certified Radiologist 03/28/2018 4:31 AM EST
[2018-03-28 05:32] LABS: Baso % (Auto) 0.3 % (0.0-2.0); Hematocrit 30.7 % (35.0-46.0); Hemoglobin 10.6 gm/dL (11.6-15.3); Lymph # (Auto) 0.6 th/mm3 (1.0-4.8); Lymph % (Auto) 6.3 % (9.0-44.0); Mean Corpuscular HGB Conc 34.4 % (32.0-36.0); Mean Corpuscular Hemoglobin 35.7 pg (27.0-34.0); Mean Corpuscular Volume 103.8 fL (80.0-100.0); Mean Platelet Volume 9.9 fL (7.0-11.0); Mono # (Auto) 1.9 th/mm3 (0.0-0.9); Mono % (Auto) 20.2 % (0.0-8.0); Neut # (Auto) 6.8 th/mm3 (1.8-7.7); Neut % (Auto) 73.2 % (16.0-70.0); Platelet Count 216 th/mm3 (150-450); Red Blood Count 2.96 mil/mm3 (4.00-5.30); Red Cell Distribution Width 13.7 % (11.6-17.2); White Blood Count 9.3 th/mm3 (4.0-11.0)
[2018-03-28 05:49] LABS: Albumin 2.6 g/dL (3.4-5.0); Anion Gap 6 meq/L (5-15); Aspartate Aminotransferase 34 U/L (15-37); Blood Urea Nitrogen 25 mg/dL (7-18); Calcium 8.9 mg/dL (8.5-10.1); Carbon Dioxide 28.3 meq/L (21.0-32.0); Chloride 107 meq/L (98-107); Glomerular Filtration Rate 53 mL/min (>89); Glucose,Random 152 mg/dL (74-106); Potassium 4.4 meq/L (3.5-5.1); Sodium 141 meq/L (136-145)
[2018-03-28 05:52] LABS: Alanine Aminotransferase 28 U/L (10-53); Alkaline Phosphatase 446 U/L (45-117); Total Protein 7.6 g/dL (6.4-8.2)
[2018-03-28] MEDS: Docusate Sodium 100 MG Capsule PO SCH ×2 (08:46→21:11)
[2018-03-28] MEDS: Famotidine 20 MG Tablet PO SCH ×2 (08:47→21:11)
--- NOTE | 2018-03-28 09:12 | P.PN ---
Subjective Interval history: Trauma PTD: 4. HD: 2 Patient OOB and sitting in a recliner chair. No distress noted. Physical therapist at bedside, assisting patient. Patient states, "I walked down the [place]nandes and back." "I do not have a headache. I do not have any pain." "I do not know how this happened, I do not remember." Physical Exam Vital signs: Vital Signs 03/27/18 11:00 03/27/18 12:00 03/27/18 16:00 Temperature 98.2 F 98.8 F 98.7 F Pulse Rate 118 H 92 H 115 H Respiratory Rate 18 Blood Pressure 144/80 H 158/66 H 142/68 H Pulse Oximetry 94 L 95 03/27/18 20:00 03/28/18 00:00 03/28/18 04:00 Temperature 97.7 F 97.8 F 97.6 F Pulse Rate 103 H 115 H 91 H Respiratory Rate 17 17 17 Blood Pressure 161/70 H 181/69 H 140/71 Pulse Oximetry 93 L 93 L 93 L Intake & Output 03/27/18 03/28/18 03/28/18 18:59 06:59 18:59 Intake Total 1480 / 1480 60 / 60 Output Total 460 / 460 Balance 1020 / 1020 60 / 60 Weight 71.9 kg Intake: IV 1000 / 1000 NS Inj 1,000 ML @ 75 mls/hr IV. 1000 / 1000 CONT .[id number] [facility] Rx#:[id number] Oral 480 / 480 60 / 60 Output: Urine 460 / 460 Other: # Voids 3 Date of Last Bowel Movement 03/24/18 03/26/18 # Bowel Movements 0 Narrative: GENERAL: This is a 87-year-old female OOB in a recliner chair. No distress noted. SKIN: Warm and dry. HEAD: Atraumatic. Normocephalic. EYES: PERRLA. Ecchymosis to right eye ENT: No nasal bleeding or discharge. Mucous membranes pink and moist. NECK: Trachea midline. No JVD. CARDIOVASCULAR: Regular rate and rhythm. RESPIRATORY: No accessory muscle use. Lungs are clear to auscultation. Breath sounds equal bilaterally. No distress or dyspnea. GASTROINTESTINAL: BS + x 4 quads. Abdomen soft, non-tender, nondistended. MUSCULOSKELETAL: Extremities without cyanosis, or edema. + peripheral pulses x 4 extremities. Warm with good capillary refill and sensation. MAEW. NEUROLOGICAL: Awake and alert. Pleasantly confused. Normal speech and pattern. Results - Labs CBC & Chem 7: 03/28/18 04:24 03/28/18 04:24 Laboratory Results - last 24 hr 03/27/18 03/28/18 03/28/18 17:20 04:24 04:24 WBC 9.3 RBC 2.96 L Hgb 10.6 L Hct 30.7 L MCV 103.8 H MCH 35.7 H MCHC 34.4 RDW 13.7 Plt Count 216 MPV 9.9 Neut % (Auto) 73.2 H Lymph % (Auto) 6.3 L Bremer % (Auto) 20.2 H Eos % (Auto) 0.0 Baso % (Auto) 0.3 Neut # (Auto) 6.8 Lymph # (Auto) 0.6 L Bremer # (Auto) 1.9 H Eos # (Auto) 0.0 Baso # (Auto) 0.0 WBC Differential . Differential Comment Auto diff final Sodium 141 Potassium 4.4 Chloride 107 Carbon Dioxide 28.3 Anion Gap 6 BUN 25 H Creatinine 0.99 Estimated GFR 53 L Random Glucose 152 H Calcium 8.9 Total Bilirubin 1.2 H AST 34 ALT 28 Alkaline Phosphatase 446 H Total Protein 7.6 Albumin 2.6 L Urine Color Anca Urine Clarity Hazy H Urine pH 5.0 Ur Specific [place] 1.020 Urine Protein 30 H Urine Glucose (UA) Negative Urine Ketones Trace H Urine Occult Blood Negative Urine Nitrate Negative Urine Bilirubin Negative Urine Urobilinogen 0.2 Ur Leukocyte Esterase Negative Urine RBC Less than 1 Urine WBC 1 Urine Bacteria Rare H Urine Mucus Few H Micro UA Comment Culture not ind Ur Microscopic Review Not Reportable Urine Culture Comments Culture not ind - Imaging Impressions Chest X-Ray 03/28/18 06:00 CONCLUSION: No significant change Assessment and Plan - Assessment (1) Nasal bone fracture Code(s): S02.2XXA - Fracture of nasal bones, initial encounter for closed fracture Status: Acute (2) Subarachnoid hemorrhage Code(s): I60.9 - Nontraumatic subarachnoid hemorrhage, unspecified Status: Acute - Plan [place]: This is a 87-year-old female [facility] She does not know how she fell, nor remember falling. INJURIES: LEFT SAH RIGHT nasal bone fx LEFT mass vs. consolidation PMHx: A. fib (on Eliquis) HTN. DM. Heart murmur. Procedures: Consults: Neurosurgery. OMFS. Case management. Diet: Diabetic diet. Tolerating po diet. Encourage good po intake with each meal. Pulmonary: Encourage good pulmonary toileting. IS at bedside and pt encouraged to use. Rationale for use explained to patient, and verbalized understanding. PAIN Management: [place] 5 mg q 4h. Morphine 2 mg q 4h for breakthrough pain. Activity: OOB. PT and OT ordered. GI prophylaxis: Pepcid 20 mg BID po Bowel regimen: Colace. MOM PRN. LBM: 0 DVT prophylaxis: Mechanical VTE with SCDs. Chemical management TBD in light of SAH. DC Planning: Case management consulted for assistance with final discharge disposition. Therapy recommends rehab. [facility] to [facility] at [facility] of discharge. Emotional support provided to patient and family at bedside and plan of care discussed. Discussed with RN at bedside. Discussed pt condition and plan of care with collaborating trauma surgeon. Patient is hemodynamically stable and managed on the med/surg floor. The trauma team will round each day, and evaluate plan of care on a daily basis. LEFT SAH Neurosurgery consulted and assisting in management and care Supportive care Serial neuro checks CT brain for any change in neurological status Seizure precautions Does not require Keppra at this time per neurosurgery Head of bed elevated Encourage out of bed PT and OT ordered Bowel regimen SCDs for DVT prophylaxis Neurosurgery has signed off, and cleared the patient for discharge when medically stable RIGHT nasal bone fx OMFS consulted assisting in management and care Nonoperative management at this time Supportive care No forceful nose blowing Pain management Encourage out of bed PT and OT ordered Bowel regimen SCDs for DVT prophylaxis Follow-up with OMFS outpatient Lung consolidation O2 nasal cannula as needed Supportive care Aggressive pulmonary toileting Pain management Chest x-ray this a.m. is stable Added Mucinex for cough Encourage out of bed PT and OT ordered Bowel regimen SCDs for DVT prophylaxis Questionable syncope Fall under unknown circumstances and [facility] Supportive care O2 nasal cannula as needed EKG -shows chronic A. fib 03/27: Carotid ultrasound -awaiting exam to be completed and results Serum glucose level -152 on this a.m.'s labs -managed glucose levels H&H = 10.6 / 30.7 stable Serum electrolytes -WNL Urine culture pending 03/26: CT brain shows tiny left SAH Consider echocardiogram Consider Holter monitor Consider cardiology consult based on carotid ultrasound results Pre-existing conditions A. fib HTN DM Heart murmur Vital signs every 4 hours and as needed Continue home losartan 100 mg daily Diabetic diet Hold Eliquis at this time in light of SAH (1) Nasal bone fracture Qualifiers: Encounter type: initial encounter Fracture type: closed Qualified Code(s): S02.2XXA - Fracture of nasal bones, initial encounter for closed fracture
[2018-03-28] MEDS ORDERED: guaiFENesin 600 MG ER Tablet PO PRN (13:09)
--- NOTE | 2018-03-28 13:21 | US ---
EXAM DATE: 03/28/2018 12:40 PM EST AGE/SEX: 87 years / Female INDICATIONS: Syncope. CLINICAL DATA: This is the patient's initial encounter. Patient reports that signs and symptoms have been present for 1 day and indicates a pain score of 0/10. MEDICAL/SURGICAL HISTORY: Diabetes. Hypertension. Atrial fibrillation. Total knee replacement. Heart murmur. None. COMPARISON: No prior exams available for comparison. VELOCITY PARAMETERS: ICA/CCA Ratio: Right 2.5 , Left 2.8 ICA: Right 82 cm/sec, Left 153 cm/sec CCA: Right 76 cm/sec, Left 54 cm/sec ECA: Right 140 cm/sec, Left 86 cm/sec Vertebral: Right 93 cm/sec antegrade, Left 81 cm/sec antegrade FINDINGS: Right Carotid: Mild arteriosclerotic plaque is visualized.The waveforms are within normal limits. Left Carotid: Moderate arteriosclerotic plaque is visualized. The waveforms are within normal limits . Other: None. CONCLUSION: PSV ratio bilaterally is elevated to 2.5 or greater. There is moderate visible plaque. Findings could be characteristic of a moderate bilateral carotid stenosis near the bifurcation. Electronically signed by: Roger Holland MD Board Certified Radiologist 03/28/2018 1:20 PM EST
[2018-03-29 09:16] VITALS: BP 179/77; PULSE 110; RESP 28; TEMP 97.1; O2SAT 92
[2018-03-29] MEDS: Docusate Sodium 100 MG Capsule PO SCH (09:17)
[2018-03-29] MEDS: Famotidine 20 MG Tablet PO SCH (09:17)
--- NOTE | 2018-03-29 15:03 | P.DS ---
Date of admission: 03/26/18 20:09 Primary care physician: Arnold Contreras MD, PhD Attending physician on discharge: Ector Renee date of discharge: 03/29/18 Brief History from admission: Fall. DS: Diagnosis - Discharge Diagnosis (1) Nasal bone fracture Status: Acute (2) Subarachnoid hemorrhage Status: Acute DS: Summary Hospital Course: [place]: This is a 87-year-old female who [facility] a [facility] the [facility]. She does not know how she fell, nor remember falling. INJURIES: LEFT SAH RIGHT nasal bone fx LEFT mass vs. consolidation PMHx: A. fib (on Eliquis) HTN. DM. Heart murmur. Procedures: Consults: Neurosurgery. OMFS. Case management. Patient sitting up in bed, having morning meal. Patient states, "I do not have any pain." Patient made aware of transfer back to [facility], and patient states, "oh, that would be wonderful." The patient is now tolerating a po diet. Eating and drinking well. Pain is being managed well with PO pain medications, patient can continue with OTC Tylenol for any pain/discomfort issues. (NO driving while taking narcotic pain medication enforced to patient.) Pt is having regular bowel movements, and have recommended to patient to continue with stool softeners while taking narcotic pain medications to prevent constipation. Pt has been participating in PT and OT while admitted at [facility] and has been ambulating with their assistance and independently. PT and OT will continue at rehab. All follow up appointments have been provided and discussed with the patient. It is recommended that the patient keeps all his follow up appointments for continued recovery. Patient's condition and plan of care discussed with collaborating trauma surgeon. He is agreeable to plan for discharge today. Therefore, the patient is stable to be safely discharged to SNF from a trauma surgery standpoint. Thank you for allowing us to participate in her care. We wish Meenakshi the best in her recovery. LEFT SAH Neurosurgery consulted and assisting in management and care Supportive care Serial neuro checks CT brain for any change in neurological status Seizure precautions Does not require Keppra at this time per neurosurgery Head of bed elevated Encourage out of bed PT and OT ordered Bowel regimen SCDs for DVT prophylaxis Neurosurgery has signed off, and cleared the patient for discharge when medically stable Follow-up with neurosurgery outpatient RIGHT nasal bone fx OMFS consulted assisting in management and care Nonoperative management at this time Supportive care No forceful nose blowing Pain management Encourage out of bed PT and OT ordered Bowel regimen SCDs for DVT prophylaxis Follow-up with OMFS outpatient Lung consolidation O2 nasal cannula as needed Supportive care Aggressive pulmonary toileting Pain management Chest x-ray this a.m. is stable Continue Mucinex for cough Encourage out of bed PT and OT ordered Bowel regimen SCDs for DVT prophylaxis Questionable syncope Fall under unknown circumstances and residential Supportive care O2 nasal cannula as needed EKG -shows chronic A. fib 03/27: Carotid ultrasound -mild stenosis on the right. Moderate stenosis on the left. H&H = 10.6 / 30.7 stable Serum electrolytes -WNL Urine culture pending 03/26: CT brain shows tiny left SAH Consider echocardiogram Consider Holter monitor Consider cardiology consult based on carotid ultrasound results Pre-existing conditions A. fib HTN DM Heart murmur Vital signs every 4 hours and as needed Continue home losartan 100 mg daily Diabetic diet May resume Eliquis for A. fib management - Time Spent with Patient Total time spent providing and/or coordinating discharge services: Greater than 30 minutes Exam Vital signs: Vital Signs 03/28/18 16:16 03/28/18 19:45 03/28/18 23:50 Temperature 98.9 F 98 F 97.6 F Pulse Rate 106 H 104 H 98 H Respiratory Rate 28 H Blood Pressure 171/80 H 175/79 H 157/77 H Pulse Oximetry 93 L 95 93 L 03/29/18 04:35 03/29/18 08:00 Temperature 98 F 97.1 F L Pulse Rate 97 H 110 H Respiratory Rate 17 28 H Blood Pressure 174/77 H 179/77 H Pulse Oximetry 93 L 92 L Intake & Output 03/28/18 03/29/18 03/29/18 18:59 06:59 18:59 Intake Total 100 / 100 Balance 100 / 100 Weight 75.2 kg Intake: Oral 100 / 100 Other: # Voids 2 1 Date of Last Bowel Movement 03/28/18 03/28/18 # Bowel Movements 1 0 Narrative: GENERAL: This is a 87-year-old female OOB in a recliner chair. No distress noted. SKIN: Warm and dry. HEAD: Atraumatic. Normocephalic. EYES: PERRLA. Ecchymosis to right eye ENT: No nasal bleeding or discharge. Mucous membranes pink and moist. NECK: Trachea midline. No JVD. CARDIOVASCULAR: Regular rate and rhythm. RESPIRATORY: No accessory muscle use. Lungs are clear to auscultation. Breath sounds equal bilaterally. No distress or dyspnea. GASTROINTESTINAL: BS + x 4 quads. Abdomen soft, non-tender, nondistended. MUSCULOSKELETAL: Extremities without cyanosis, or edema. + peripheral pulses x 4 extremities. Warm with good capillary refill and sensation. MAEW. NEUROLOGICAL: Awake and alert. Pleasantly confused. Normal speech and pattern. Results Procedures completed during hospitalization: . - Impressions ITS Impressions Face CT 03/26/18 17:28 CONCLUSION: 1. Possible minimally displaced right nasal bone fracture. 2. Mild right periorbital soft tissue swelling. Head CT 03/26/18 17:28 CONCLUSION: 1. Mild focal subarachnoid hemorrhage seen over the left frontal region. 2. Age-related atrophy. 3. Widespread confluent demyelination. This is nonspecific. It could be secondary to small vessel ischemic change. . . Carotid Doppler Study 03/28/18 00:00 CONCLUSION: PSV ratio bilaterally is elevated to 2.5 or greater. There is moderate visible plaque. Findings could be characteristic of a moderate bilateral carotid stenosis near the bifurcation. Chest X-Ray 03/28/18 06:00 CONCLUSION: No significant change Discharge Plan - Discharge Disposition Patient Disposition: 03 Discharge to SNF - Discharge Condition Condition: Stable - Discharge Order Discharge Orders: Discharge Order (Routine); Ordered 03/29/18 Ordered By: Manisha Gee - Discharge Details Anticipated Discharge Date: 03/29/18 Discharge Comment: Return to [facility]/SNF - Physicians Team Primary Care Provider: Arnold Contreras Attending Provider: Amado Rose Other Providers: Suraj Marshall MD ; Amado Rose MD ; Farhan Agrawal MD ; [employer] ; Ector Casas MD ; Manisha Gee, [facility] ; Brennan Sanchez MD ; Es Guevara MD ; Chelsy Crow ARNP ; Milad Hampton MD ; Wolf Hairston, MARY ANNS
== END 2018-03-29 13:09 | DRG 84 ==
LOC: NEPC 16:55 → NEDA 20:09 → N03 21:22 → N06 03-27 17:40
PROVIDERS: ADMIT Surgery; ATTEND Surgery
CPT/HCPCS: J7030